=== PATIENT | male | born 2000 | race Caucasian/White ===

== ENCOUNTER 2022-05-23 09:42 | Emergency (ER) | payer SELFPAY ==
[2022-05-23] MEDS ORDERED: Morphine 4 MG/ML VIAL ONE ×2 (10:17→11:46)
[2022-05-23] MEDS ORDERED: Ketorolac Tromethamine 30 MG/ML VIAL ONE ×2 (10:18→13:50)
[2022-05-23 10:19] LABS: Bilirubin Neg (Negative); Blood, Urine Negative (Negative); Clarity Clear (Clear); Glucose, Urine (Dipstick) Normal (Negative); Ketone, Urine 15 mg/dL (Negative); Leukocyte Negative (Negative); Nitrite Negative (Negative); Protein, Urine (Dipstick) Negative (Neg-Trace); Urobilinogen Normal mg/dL (Less than 2)
[2022-05-23 10:57] LABS: #Eosinphils 0.2 10x3/uL (0.0-0.5); #Monocytes 0.5 10x3/uL (0.0-1.1); #Neutrophils 6.1 10x3/uL (1.5-8.4); %Basophils 0.4 % (0.0-2.0); %Eosinophils 2.5 % (0.0-6.0); %Lymphocytes 19.5 % (18.0-47.0); %Monocytes 5.6 % (0.0-10.0); %Neutrophils 71.6 % (40.0-75.0); Hemoglobin 15.4 g/dL (13.5-17.5); Mean Corpuscular HGB CONC 32.2 g/dL (32.0-36.0); Mean Corpuscular Hemoglobin 26.7 pg (27.0-33.0); Mean Platelet Volume 11.1 fl (7.4-10.4); Platelet Count 201 10x3/uL (150-450); RBC Distribution Width 13.9 % (11.5-14.5); Red Blood Cell (RBC) Count 5.77 10x6/uL (4.32-5.72); White Blood Cell (WBC) Count 8.5 10x3/uL (3.5-10.5)
[2022-05-23 11:11] LABS: ALT (SGPT) 26 U/L (8-55); AST (SGOT) 35 U/L (5-34); Alkaline Phosphatase 105 U/L (50-130); Anion Gap 20 mmol/L (10-20); BUN (Urea Nitrogen) 22 mg/dL (8.9-20.6); Bilirubin, Total 0.5 mg/dL (0.2-1.2); Calc. Creatinine Clearance 0 mL/min (70-130); Calcium 10.1 mg/dL (7.8-10.44); Carbon Dioxide 18 mmol/L (22-29); Chloride 107 mmol/L (98-107); Estimated GFR 104; Globulin 2.4 g/dL (2.4-3.5); Glucose 118 mg/dL (70-105); Potassium 4.1 mmol/L (3.5-5.1); Protein, Total 7.4 g/dL (6.0-8.3); Sodium 141 mmol/L (136-145)
[2022-05-23] MEDS ORDERED: Ondansetron PF 4 MG/2 ML Vial ONE ×3 (11:46→15:45)
[2022-05-23] MEDS ORDERED: Bupivacaine 0.25% HCL 30 ML VIAL ONE (12:07)
[2022-05-23] MEDS ORDERED: Bacitracin 1 PK ONE (12:08)
[2022-05-23] MEDS ORDERED: Rocuronium Bromide 10 MG/ML (10ML VIAL) ONE (12:19)
[2022-05-23] MEDS ORDERED: Midazolam HCl 2 mg/2 ml Vial ONE (12:19)
[2022-05-23] MEDS ORDERED: Fentanyl 100 MCG/2 ML VIAL ONE (12:19)
[2022-05-23] MEDS ORDERED: Dexamethasone 4 mg/ml Vial ONE (12:19)
[2022-05-23] MEDS ORDERED: Lidocaine 1% PF 5 ML VIAL ONE (12:19)
[2022-05-23] MEDS ORDERED: PROPOFOL 20 ML ONE (12:19)
[2022-05-23] MEDS ORDERED: CEFAZOLIN 1 GM VIAL ONE (12:59)
[2022-05-23] MEDS ORDERED: PHENYLEPHRINE-NS 100 MCG/ML 10 ML SYRINGE ONE (13:05)
[2022-05-23] MEDS ORDERED: Glycopyrrolate 0.2 MG/ML 5 ML SYRINGE ONE (13:50)
== END 2022-05-23 12:50 | disposition admitted as inpatient to this hospital (09) ==
LOC: CSHERS 09:42
DX: N44.00 Torsion of testis, unspecified (principal)
CPT/HCPCS: 76870; 80053; 81003; 85025; 93976; 96374; 96375; 96376; J0690; J1100; J1885; J2250; J2270; J2405; J2704; J3010; S0020